=== PATIENT | female | born 1930 | race Caucasian/White ===

== ENCOUNTER 2017-12-18 15:13 | Observation (INO) | payer OTHER, BC ==
[2017-12-18 15:36] LABS: PLATELET COUNT 227 10^3/uL (150-400)
[2017-12-18] MEDS ORDERED: ONDANSETRON 4 MG/2 ML VIAL IVP ONE (15:38)
[2017-12-18] MEDS ORDERED: NS 1,000 ML IV ONE (15:38)
--- NOTE | 2017-12-18 15:38 | EDPHY ---
H & P Stated Complaint: NAUSEA AND AMS Time Seen by Provider: 12/18/17 15:26 HPI/ROS: CHIEF COMPLAINT: Nausea and vomiting HISTORY OF PRESENT ILLNESS: This is an anticoagulated 87 y/o female with a history of atrial fibrillation arriving via EMS complaining of nausea and vomiting onset acutely 45 minutes ago. She tells me she suddenly started vomiting today despite feeling otherwise normal. No associated abdominal pain, fever, diarrhea, headache, cough, chest pain, dyspnea, recent illness, recent trauma. Her niece (who has medical POA) says she felt weak and she couldn't walk. The patient says she just doesn't think she could stand right now. She ate breakfast normally this morning. No recent changes in medications or other daily activities. History limited by patient's hearing loss. REVIEW OF SYSTEMS: Constitutional: No fever, no chills Eyes: No visual changes ENT: No sore throat Respiratory: No cough, no shortness of breath Cardiac: No chest pain Gastrointestinal: see HPI Genitourinary: No hematuria, no dysuria Musculoskeletal: No leg pain or swelling Skin: No rash Neurological: No headache Psychiatric: No depression - Personal History Current Tetanus/Diphtheria Vaccine: Yes Current Tetanus Diphtheria and Acellular Pertussis (TDAP): Yes - Medical/Surgical History PMH: PMH includes: 1. Atrial fibrillation - Eliquis, digoxin 2. Breast cancer 3. Hearing loss Hx Asthma: No Hx Chronic Respiratory Disease: No Hx Diabetes: No Hx Cardiac Disease: Yes Hx Renal Disease: No Hx Cirrhosis: No Hx Alcoholism: No Hx HIV/AIDS: No Hx Splenectomy or Spleen Trauma: No Other PMH: AFIB, - Social History Smoking Status: Never smoked Additional Social History: Normally walks with walker. Lives at home with her niece, who is her POA. Niece at bedside. - Physical Exam Exam: Vitals: HR 188/119, HR 100 General Appearance: Alert, appears pale Eyes: Pupils equal and round, no conjunctival pallor or injection ENT, Mouth: Mucous membranes moist Neck: Normal inspection Respiratory: Lungs are clear to auscultation Cardiovascular: Regular rate and rhythm Gastrointestinal: Abdomen is soft and non-tender Neurological: A&O, nonfocal, hard of hearing, gait deferred Skin: Warm and dry Extremities: Nontender, no pedal edema Psychiatric: Mood and affect normal Constitutional: Initial Vital Signs Temperature (C) 36.9 C 12/18/17 15:17 Heart Rate 98 12/18/17 15:17 Respiratory Rate 94 H 12/18/17 15:17 Blood Pressure 159/96 H 12/18/17 15:17 O2 Sat (%) 94 12/18/17 15:17 O2 Delivery Mode Room Air Allergies/Adverse Reactions: No Known Allergies Allergy (Verified 12/18/17 17:50) Home Medications: Medication Instructions Recorded Alendronate Sodium [Fosamax 70 MG 71 mg PO MO 12/18/17 (*)] Apixaban [Eliquis] 2.5 mg PO BID 12/18/17 Atorvastatin Calcium [Lipitor 20 20 mg PO HS 12/18/17 mg (*)] Cholecalciferol Vit D3 [Vitamin D3 1,000 units PO DAILY 12/18/17 (*)] Cyanocobalamin [Vitamin B12 (*)] 1,000 mcg PO DAILY 12/18/17 Digoxin [Lanoxin 125 mcg (RX)] 125 mcg PO DAILY10 12/18/17 Diltiazem Sr [Cardizem Sr] 90 mg PO DAILY 12/18/17 LORazepam [Ativan (*)] 0.5 mg PO HS 12/18/17 Levothyroxine [Synthroid 75 mcg 75 mcg PO DAILY06 12/18/17 (*)] QUEtiapine FUMARATE [Seroquel 50 75 mg PO HS 12/18/17 mg (*)] Tamoxifen Citrate [Nolvadex 10 MG 20 mg PO DAILY 12/18/17 (*)] Medical Decision Making ED Course/Re-evaluation: This is a [id number] 87 y/o female with a history of atrial fibrillation who presents with acute onset nausea and vomiting with associated generalized weakness 45 minutes prior to arrival. Patient appears pale, but otherwise has a largely unremarkable exam. Plan for IV, labs, UA, EKG, and symptom management. 1L IV NS and 4mg IV Zofran ordered. The 12 lead EKG was interpreted by myself. Atrial fibrillation rate 99, abnormal R wave progression, diffuse T wave changes. See hard copy and/or "tracemaster" electronic copy for interpretation. IV NS 1 liter and Zofran IV given, still nauseated, but fels better, has not vomited. Still feels too weak to stand up. Given advanced age, vomiting and weakness, will admit for obseration. Abd exam remains benign. I do not suspect SBO, sharona, pancreatitis, or other serious etology of sx. Consulted with hospitalist service. Dr. Russell accepts admission for N/V and generalized weakness. Differential Diagnosis: includes though not limited to SBO, bowel perforation, cholecystitis, pancreatitis, appy - Data Points Laboratory Results: Laboratory Results 12/18/17 15:20 12/18/17 15:20 Medications Given: Discontinued Medications Apixaban (Eliquis) 2.5 mg PO BID [facility] Stop: 06/16/18 20:59 Last Admin: 12/19/17 07:53 Dose: 2.5 mg Atorvastatin Calcium (Lipitor) 20 mg PO HS [facility] Stop: 06/16/18 20:59 Last Admin: 12/18/17 23:08 Dose: 20 mg Cholecalciferol (Vitamin D) 1,000 units PO DAILY [facility] Stop: 06/17/18 08:59 Last Admin: 12/19/17 07:52 Dose: 1,000 units Digoxin (Lanoxin) 125 mcg PO DAILY10 [facility] Stop: 06/17/18 09:59 Last Admin: 12/19/17 08:59 Dose: 125 mcg Diltiazem HCl (Cardizem Sr) 90 mg PO DAILY [facility] Stop: 06/17/18 08:59 Last Admin: 12/19/17 07:53 Dose: 90 mg Sodium Chloride (Ns) 1,000 mls @ 0 mls/hr IV EDNOW ONE; Wide Open PRN Reason: Protocol Stop: 12/18/17 15:39 Last Admin: 12/18/17 15:56 Dose: 1,000 mls Sodium Chloride (Ns) 1,000 mls @ 100 mls/hr IV CONT [facility] Stop: 06/16/18 17:44 Last Admin: 12/19/17 07:52 Dose: 1,000 mls Levothyroxine Sodium (Synthroid) 75 mcg PO DAILY06 [facility] Stop: 06/17/18 05:59 Last Admin: 12/19/17 07:53 Dose: 75 mcg Lorazepam (Ativan) 0.5 mg PO HS [facility] Stop: 06/16/18 20:59 Last Admin: 12/18/17 23:08 Dose: 0.5 mg Ondansetron HCl (Zofran) 4 mg IVP EDNOW ONE Stop: 12/18/17 15:39 Last Admin: 12/18/17 15:56 Dose: 4 mg Ondansetron HCl (Zofran) 4 mg IVP Q4HRS PRN PRN Reason: Nausea/Vomiting, Can't Take PO Stop: 06/16/18 17:38 Last Admin: 12/19/17 08:58 Dose: 4 mg Ondansetron HCl (Zofran Odt) 4 mg PO Q4HRS PRN PRN Reason: Nausea/Vomiting, Use 1st Stop: 06/16/18 17:38 Last Admin: 12/18/17 21:09 Dose: 4 mg Quetiapine Fumarate (Seroquel) 75 mg PO HS [facility] Stop: 06/16/18 20:59 Last Admin: 12/18/17 23:08 Dose: 75 mg Tamoxifen Citrate (Nolvadex) 20 mg PO DAILY [facility] Stop: 06/17/18 08:59 Last Admin: 12/19/17 07:53 Dose: 20 mg Vitamin B Complex (Vitamin B12) 1,000 mcg PO DAILY [facility] Stop: 06/17/18 08:59 Last Admin: 12/19/17 07:52 Dose: 1,000 mcg Departure - Departure Disposition: [facility] Inpatient Acute Clinical Impression: Generalized weakness Nausea and vomiting Qualifiers: Vomiting type: unspecified Vomiting Intractability: non-intractable Qualified Code(s): R11.2 - Nausea with vomiting, unspecified Condition: Fair Report Scribed for: Haley Funes Report Scribed by: Galina Gandara Date of Report: 12/18/17 Time of Report: 15:28 Physician Review and Approval Statement: 12/18/17 15:28 Portions of this note were transcribed by a medical delivery technician. I personally performed a history, physical exam, medical decision making, and confirmed accuracy of information the transcribed note.
--- NOTE | 2017-12-18 16:03 | CPEKG ---
Heart Rate: 99 RR Interval: 606 QRSD Interval: 84 QT Interval: 344 QTC Interval: 442 QRS Ridgeway: 16 T Wave Ridgeway: 230 EKG Severity - ABNORMAL ECG - EKG Impression: ATRIAL FIBRILLATION, V-RATE 78-143 EKG Impression: ABNRM R PROG, CONSIDER ASMI OR LEAD PLACEMENT EKG Impression: NONSPECIFIC T ABNORMALITIES, DIFFUSE LEADS Electronically Signed By: Haley Funes 18-Dec-2017 20:48:18
[2017-12-18] MEDS ORDERED: ONDANSETRON DISINTEGRATING 4 MG TAB PO PRN (17:39)
[2017-12-18] MEDS ORDERED: ACETAMINOPHEN 325 MG TAB PO PRN (17:39)
[2017-12-18] MEDS ORDERED: NS 1,000 ML IV SCH (17:45)
--- NOTE | 2017-12-18 18:45 | GHP ---
[f rep st] HISTORY AND PHYSICAL DATE OF ADMISSION: 12/18/2017 CHIEF COMPLAINT: Vomiting. HISTORY OF PRESENT ILLNESS: An 87-year-old female with history of atrial fibrillation, on anticoagul ation, who presents with sudden onset of vomiting this morning after breakfast. The patient reports being in her normal state of health, good appetite, good balance without any pain in her head or ches t, shortness of breath, dysuria, or urinary frequency. The patient took her normal breakfast which i ncludes eggs, marrero, and toast without any associated nausea or difficulty with her stools. Then aft er breakfast, the patient developed very unexpected nausea and vomiting. She vomited 3 times in succ ession at home and was brought to the emergency department by her niece who lives with her and is her care provider. In the emergency department, she denies any pain of her abdomen, chest, head. Denie s dysuria. Denies hematuria. Denies any unusual stools or diarrhea. Denies any known sick contacts . Denies any gait instability, dizziness, vision changes. The patient does report dropping a pot on her head from a height above her head when she was reaching up in the kitchen. This occurred 48 ana rosa rs ago, left a bruise on her forehead, and remains tender per her report when touched, but otherwise nil. The patient denies any palpitations. Denies any shortness of breath. Denies any known sick co ntacts. Denies any new medications or medication changes. Denies any subjective fevers or chills. PAST MEDICAL HISTORY: 1. Atrial fibrillation. 2. Baseline cognitive deficits. 3. Hyperlipidemia. 4. Hypothyroidism. 5. History of breast cancer. SOCIAL HISTORY: Negative for tobacco, occasional half glass of wine with dinner. No illicit drugs o r marijuana. FAMILY HISTORY: Negative for dementia. ADVANCED DIRECTIVES: The patient wishes to be do not resuscitate. Her niece would be her medical de cision maker. REVIEW OF SYSTEMS: A 10-point review of systems is negative with the exception of that reported in t he HPI. PHYSICAL EXAMINATION: VITAL SIGNS: Blood pressure 159/96, heart rate 98, respiratory rate 20, satur ating 94% on room air, 36.9. GENERAL: This is a very robust-appearing elderly female lying flat in bed. HEENT: Notable for dry mucous membranes. Eye exam is negative for any icterus. CARDIAC: The patient is irregularly irregular. PULMONARY: Clear to auscultation bilaterally. GASTROINTESTINAL: Positive bowel sounds. Abdomen is soft and nontender in all 4 quadrants including suprapubic. MUS CULOSKELETAL: Negative for any lower extremity edema. SKIN: Negative for any rashes. NEUROLOGIC: The patient has poor memory. Otherwise, 5/5 strength of bilateral upper and lower extremities. General Education Instructor nial nerves 2-12 are grossly intact. LABORATORY DATA: White count 7.1, hematocrit 41.6, platelets of 224. Sodium 140, creatinine 0.9, bl ood glucose 110. Digoxin 0.7. EKG, which I personally reviewed and interpreted, shows atrial fibrillation, normal axis, normal inte rvals with no acute ST-T changes. ASSESSMENT AND PLAN: This is an 87-year-old female presenting with nausea and vomiting. 1. Acute nausea and vomiting. Based on history, there is no clear provocating event and lower suspi cion for medication-related side effect as she has no new medications or dose changes. Possible rela bryant to a viral gastroenteritis. However, the patient has not developed diarrhea. Will rule out a ce ntral cause with a noncontrast CT of the head as the patient does have a painful lump on her forehead and is on anticoagulants at home, and apparently, the pot that she dropped on her head was quite hea vy. Will check a urinalysis to rule out occult urinary tract infection. Admit the patient for IV fl uid resuscitation, IV antiemetics and observation. 2. Atrial fibrillation. The patient's rates are ranging between 90s to 100s. We will fluid resusci hilario and continue her home rate control medications. I am holding her Eliquis until we have a negati ve head CT. 3. Hypothyroidism. We will send a TSH. 4. Baseline cognitive deficits. The niece, who is her care provider, describes a decline in the rec ent months in her memory. She is followed by an outpatient primary care who will continue to provide support and care in the outpatient setting. We will continue her home medications overnight. 5. Prophylaxis. She is on Eliquis which I will continue with a negative CT. DIET: Regular. DISPOSITION: I expect in less than 2 midnights if the patient's nausea responds well to antiemetics and we find no concerning causes requiring ongoing treatment in the hospital. I have discussed the c ase with the emergency room physician. The patient will be triaged to medical-surgical floor for car e. /[id number]/MODL
[2017-12-18] MEDS: ONDANSETRON 4 MG/2 ML VIAL IVP PRN (21:04)
[2017-12-18] MEDS: QUEtiapine FUMARATE 50 MG TAB PO SCH ×2 (21:09→23:08)
[2017-12-18] MEDS: LORazepam 0.5 MG TAB PO SCH ×2 (21:09→23:08)
[2017-12-18] MEDS: ATORVASTATIN CALCIUM 20 MG TAB PO SCH ×2 (21:09→23:08)
[2017-12-18] MEDS: APIXABAN 2.5 MG TAB PO SCH ×2 (21:09→23:09)
[2017-12-19] MEDS ORDERED: LEVOTHYROXINE 75 MCG TAB PO SCH (06:00)
[2017-12-19] MEDS: APIXABAN 2.5 MG TAB PO SCH (07:53)
[2017-12-19] MEDS: ONDANSETRON 4 MG/2 ML VIAL IVP PRN (08:58)
[2017-12-19] MEDS ORDERED: DILTIAZEM SR 90 MG CAP PO SCH (09:00)
[2017-12-19] MEDS ORDERED: CYANO/VITAMIN B12 1000 MCG TAB PO SCH (09:00)
[2017-12-19] MEDS ORDERED: TAMOXIFEN CITRATE 10 MG TAB PO SCH (09:00)
[2017-12-19] MEDS ORDERED: CHOLECALCIFEROL VIT D3 1,000 UNITS TAB PO SCH (09:00)
[2017-12-19] MEDS ORDERED: DIGOXIN 125 MCG TAB PO SCH (10:00)
--- NOTE | 2017-12-19 12:18 | ASMTCMCOM ---
CM Note CM Note Notes: Met w/pt and niece, Isabel. Pt lives with niece who is her primary caregiver. She also has a private pay DESPATCH CLERK that comes 5 days a week. OT worked with pt and recommends homecare/ PT still pending. DC Plan: TBD Date Signed: 12/19/2017 12:17 PM Electronically Signed By:Deedee Cardenas RN
--- NOTE | 2017-12-19 13:51 | HOSPPROG ---
Hospitalist Progress Note Assessment/Plan: 87 yo F w single episode of vomiting home today see dc summary Subjective: ate magaña soup. not nauseated, hasnt vomitied since arrival Objective: Vital Signs Temp Pulse Resp BP Pulse Ox 36.7 C 112 H 18 147/96 H 92 12/19/17 12:00 12/19/17 12:00 12/19/17 12:00 12/19/17 12:00 12/19/17 12:00 12/18/17 12/19/17 12/20/17 05:59 05:59 05:59 Intake Total 1175 Output Total 1 Balance 1174 - Physical Exam Constitutional: no apparent distress, appears nourished Eyes: PERRL, anicteric sclera Ears, Nose, Mouth, Throat: moist mucous membranes, hearing normal Cardiovascular: regular rate and rhythym, no murmur, rub, or gallop Respiratory: no respiratory distress, no rales or rhonchi Gastrointestinal: normoactive bowel sounds, soft, non-tender abdomen, No guarding, No rebound Genitourinary: no bladder fullness Skin: warm, normal color Musculoskeletal: full muscle strength Neurologic: AAOx3 ICD10 Worksheet Patient Problems: Problems Problem Status Onset Generalized weakness Acute Nausea and vomiting Acute
--- NOTE | 2017-12-19 14:38 | GDS ---
[f rep st] DISCHARGE SUMMARY DISCHARGE DIAGNOSIS: 1. Vomiting. 2. Atrial fibrillation. 3. Diabetes. 4. Dementia. Please see admission history and physical by Dr. Jeanette Russell. The patient presented with an episo de of vomiting x3 without diarrhea or abdominal pain. There was no blood. She had a normal noncontr ast head CT, unremarkable exam, normal lab and tolerated food on the day of discharge. She is theref ore discharged home. /[id number]/MODL
[2017-12-19 15:31] VITALS: BP 142/103; PULSE 110; RESP 16; TEMP 98.8; O2SAT 91
--- NOTE | 2017-12-19 15:36 | PDIAF ---
- Diagnosis Diagnosis: vomiting Code Status: Do Not Resuscitate - Medication Management Discharge Medications: Medications to Continue on Transfer Alendronate Sodium [Fosamax 70 MG (*)] 71 mg PO MO 12/18/17 [Last Taken 12/15/17 ] Apixaban [Eliquis] 2.5 mg PO BID 12/18/17 [Last Taken 12/18/17] Atorvastatin Calcium [Lipitor 20 mg (*)] 20 mg PO HS 12/18/17 [Last Taken ] Cholecalciferol Vit D3 [Vitamin D3 (*)] 1,000 units PO DAILY 12/18/17 [Last Taken 12/18/17] Cyanocobalamin [Vitamin B12 (*)] 1,000 mcg PO DAILY 12/18/17 [Last Taken ] Digoxin [Lanoxin 125 mcg (RX)] 125 mcg PO DAILY10 12/18/17 [Last Taken 12/18/17] Diltiazem Sr [Cardizem Sr] 90 mg PO DAILY 12/18/17 [Last Taken 12/18/17] LORazepam [Ativan (*)] 0.5 mg PO HS 12/18/17 [Last Taken 12/17/17] Levothyroxine [Synthroid 75 mcg (*)] 75 mcg PO DAILY06 12/18/17 [Last Taken 05/30] QUEtiapine FUMARATE [Seroquel 50 mg (*)] 75 mg PO HS 12/18/17 [Last Taken ] Tamoxifen Citrate [Nolvadex 10 MG (*)] 20 mg PO DAILY 12/18/17 [Last Taken Unknown] Discharge Medications: Refer to the Discharge Home Medication list for PRN reason. - Orders Services needed: Home Care, Physical Therapy, Occupational Therapy Home Care Face to Face: I certify that this patient was under my care and that I had the required azun-ge-[id number] encounter meeting the encounter requirements on the discharge day. My findings support the fact that the patient is homebound as defined in Home Care Face to Face Continued: CMS Chapter 7 Medicare Benefits Manual 30.1.1 , The condition of the patient is such that there exists a normal inability to leave home and consequently, leaving home would require a considerable and taxing effort. - Follow Up Care Current Providers and Referrals: Patient,NotPresent [Unknown] - As per Instructions
--- NOTE | 2017-12-19 17:51 | ASMTCMCOM ---
CM Note CM Note Notes: Received call from Tanisha at [facility], they are able to take pt and will reach out to her nidia Hall for scheduling. DC Plan: [facility]/ [facility] (PT/OT) Date Signed: 12/19/2017 05:50 PM Electronically Signed By:Deedee Cardenas RN
--- NOTE | 2017-12-20 17:15 | ASDISCHSUM ---
Discharge Information Plan Status:Home with Home Health Medically Cleared to Leave: Discharge Date:12/19/2017 06:12 PM CM D/C Disposition:Home Health Service ADT D/C Disposition:[id number] Projected Discharge Date:12/19/2017 11:00 AM Transportation at D/C:Family Discharge Delay Reason: Follow-Up Date:12/19/2017 11:00 AM Discharge Slot: Final Diagnosis: Placement Information Referral Type:*Home Health Care Services Referral ID:[id number] Provider Name:[facility] [place] Address 1:[address] [address] Phone Number: Address 2: Fax Number: City:[place] Selection Factors: State:[place] Patient Contact Information Contact Name:YOLANDA Relationship:Sriram Address:[address] Work Phone: City:[facility] Phone: State/Zip Code:[place] [address] Email: Financial Information Financial Class:Medicare Primary Plan Desc:MEDICARE OUTPATIENT Primary Plan Number:[id number] Secondary Plan Desc:[employer] by [employer] [facility] Secondary Plan Number:[id number] Assessment Information [facility] CM Progress Note CM Note CM Note Notes: Met w/pt and sriram Isabel. Pt lives with niece who is her primary caregiver. She also has a private pay ENERGY SALES BROKER that comes 5 days a week. OT worked with pt and recommends homecare/ PT still pending. DC Plan: TBD Date Signed: 12/19/2017 12:17 PM Electronically Signed By:Deedee Cardenas RN [facility] CM Progress Note CM Note CM Note Notes: Received call from Tanisha at [facility], they are able to take pt and will reach out to her nidia Hall for scheduling. DC Plan: Homecare/ [facility] (PT/OT) Date Signed: 12/19/2017 05:50 PM Electronically Signed By:Deedee Cardenas RN Case Management Discharge Plan Note Case Management Discharge Discharge Order Complete? Answers: Yes Patient to Obtain Answers: Independently Medications Transportation Arranged Answers: Family/Friends Faxed Final Orders Answers: Yes Family Notified Answers: Yes Discharge Comments Notes: Emelina PATEL, final orders faxed. Tanisha Duong notified. Date Signed: 12/19/2017 05:52 PM Electronically Signed By:Deedee Cardenas RN Intervention Information
== END 2017-12-19 18:12 | disposition home health service (06) ==
LOC: F3E 17:40
PROVIDERS: ADMIT Hospitalist; ATTEND Internal Medicine
DX: R11.2 Nausea with vomiting, unspecified (principal); R53.1 Weakness; I48.91 Unspecified atrial fibrillation; F03.90 Unspecified dementia, unspecified severity, without behavioral disturbance, psychotic disturbance, mood disturbance, and anxiety; I25.10 Atherosclerotic heart disease of native coronary artery without angina pectoris; E03.9 Hypothyroidism, unspecified; H91.90 Unspecified hearing loss, unspecified ear; Z79.01 Long term (current) use of anticoagulants; Z85.3 Personal history of malignant neoplasm of breast; Z66 Do not resuscitate
CPT/HCPCS: 70450; 93005; 96374; 97161; 97166; 99285; G0378; G8978; G8979; J2405; G8987-GO-CI; G8988-GO-CI; G8989-GO-CI

== ENCOUNTER 2018-01-15 18:14 | Inpatient (IN) | payer OTHER, BC ==
--- NOTE | 2018-01-15 18:32 | EDPHY ---
H & P Time Seen by Provider: 01/15/18 18:21 HPI/ROS: CHIEF COMPLAINT: Nausea vomiting HISTORY OF PRESENT ILLNESS: The patient is an 87-year-old female with a history of atrial fibrillation who presents to the emergency department with nausea and vomiting. The patient states she was doing well this morning until just prior to arrival when she became nauseated. She had 3 episodes of nonbloody emesis. No fevers or chills. No abdominal pain. No chest pain or shortness of breath. Patient was seen in the emergency department on 12/18/2017 with similar symptoms. REVIEW OF SYSTEMS: My complete review of systems is negative except as mentioned in the HPI. Past Medical/Surgical History: Includes atrial fibrillation, baseline cognitive deficits, hyperlipidemia, hypothyroidism, breast cancer Social history: The patient denies tobacco or drugs. She occasionally drinks alcohol. Smoking Status: Never smoked Physical Exam: Vitals noted. Hypertensive at 181/117. GENERAL: No acute distress, alert. HEENT: Eyes normal to inspection, normal pharynx, no signs of dehydration. NECK: No thyromegaly, no lymphadenopathy, supple. RESPIRATORY: Clear to auscultation bilaterally, no rales, rhonchi or wheezing. CVS: Regular rate and rhythm, no rubs, murmurs, or gallops. ABDOMEN: Soft, nontender, nondistended, no organomegaly. Benign BACK: Normal to inspection, no CVA tenderness. SKIN: Normal color, no rash, warm, dry. No pallor. EXTREMITIES: No pedal edema, no calf tenderness, no Homans sign or cords, no joint swelling. NEURO/PSYCH: Alert and oriented x2, normal mood and affect, normal motor sensory exam. No obvious cranial nerve deficit. Constitutional: Initial Vital Signs Temperature (C) 36.8 C 01/15/18 18:20 Heart Rate 62 01/15/18 18:20 Respiratory Rate 20 01/15/18 18:20 Blood Pressure 181/117 H 01/15/18 18:20 O2 Sat (%) 91 L 01/15/18 18:20 O2 Delivery Mode Nasal Cannula O2 (L/minute) 2 Allergies/Adverse Reactions: No Known Allergies Allergy (Verified 01/15/18 18:26) Home Medications: Medication Instructions Recorded Alendronate Sodium [Fosamax 70 MG 71 mg PO MO 12/18/17 (*)] Apixaban [Eliquis] 2.5 mg PO BID 12/18/17 Atorvastatin Calcium [Lipitor 20 20 mg PO HS 12/18/17 mg (*)] Cholecalciferol Vit D3 [Vitamin D3 1,000 units PO DAILY 12/18/17 (*)] Cyanocobalamin [Vitamin B12 (*)] 1,000 mcg PO DAILY 12/18/17 Digoxin [Lanoxin 125 mcg (RX)] 125 mcg PO DAILY10 12/18/17 Diltiazem Sr [Cardizem Sr] 90 mg PO DAILY 12/18/17 LORazepam [Ativan (*)] 0.5 mg PO HS 12/18/17 Levothyroxine [Synthroid 75 mcg 75 mcg PO DAILY06 12/18/17 (*)] QUEtiapine FUMARATE [Seroquel 50 75 mg PO HS 12/18/17 mg (*)] Tamoxifen Citrate [Nolvadex 10 MG 20 mg PO DAILY 12/18/17 (*)] Medical Decision Making - Diagnostics Imaging Results: Imaging Impressions Chest X-Ray 01/15/18 19:33 Impression: Early asymmetric congestive heart failure versus bilateral upper lobe pneumonitis. Findings and recommendations discussed with Emergency Department physician, Ayala Montoya M.D., at 2009 hours, on January 15, 2018. Final report concurs with initial preliminary interpretation. ED Course/Re-evaluation: I met EMS on arrival. I took report from the assistant teacher primary. He was unable to obtain IV access. The patient was given Zofran 4 mg ODT. Guitar Instructor states that the family reports that she is at her baseline mental status. She is normally alert and orient x2. An IV was placed. Laboratory studies were obtained. Patient was given normal saline 500 mL IV for hydration. I reviewed the patient's medical record from 12/18/2017. At that time she was admitted with nausea and vomiting of unknown origin. Atrial fibrillation at 90, normal rate, normal axis, normal intervals. There are no ST or T-wave abnormalities. Chest x-ray: I discussed this with Dr. Swift. Please refer the dictated report. This is CHF versus atypical pneumonia. The patient's CBC was mildly elevated. Her chemistry panel was unremarkable. BNP was elevated at 2400. Troponin was negative. Differential Diagnosis: My differential includes but is not limited to gastroenteritis, small-bowel obstruction, perforation, electrolyte abnormality, sugar abnormality, dehydration - Data Points Laboratory Results: Laboratory Results 01/15/18 20:30 01/15/18 20:30 01/15/18 01/15/18 01/15/18 20:40 20:30 20:30 WBC 10.95 10^3/uL H 10^3/uL (3.80-9.50) RBC 4.45 10^6/uL 10^6/uL (4.18-5.33) Hgb 14.4 g/dL g/dL (12.6-16.3) Hct 42.5 % % (38.0-47.0) MCV 95.5 fL fL (81.5-99.8) MCH 32.4 pg pg (27.9-34.1) MCHC 33.9 g/dL g/dL (32.4-36.7) RDW 14.2 % % (11.5-15.2) Plt Count 245 10^3/uL 10^3/uL (150-400) MPV 10.4 fL fL (8.7-11.7) Neut % (Auto) 90.5 % H % (39.3-74.2) Lymph % (Auto) 5.0 % L % (15.0-45.0) [place] % (Auto) 3.5 % L % (4.5-13.0) Eos % (Auto) 0.2 % L % (0.6-7.6) Baso % (Auto) 0.4 % % (0.3-1.7) Nucleat RBC Rel Count 0.0 % % (0.0-0.2) Absolute Neuts (auto) 9.92 10^3/uL H 10^3/uL (1.70-6.50) Absolute Lymphs (auto) 0.55 10^3/uL L 10^3/uL (1.00-3.00) Absolute Monos (auto) 0.38 10^3/uL 10^3/uL (0.30-0.80) Absolute Eos (auto) 0.02 10^3/uL L 10^3/uL (0.03-0.40) Absolute Basos (auto) 0.04 10^3/uL 10^3/uL (0.02-0.10) Absolute Nucleated RBC 0.00 10^3/uL 10^3/uL (0-0.01) Immature Gran % 0.4 % % (0.0-1.1) Immature Gran # 0.04 10^3/uL 10^3/uL (0.00-0.10) Sodium 135 mEq/L mEq/L (135-145) Potassium 4.7 mEq/L mEq/L (3.5-5.2) Chloride 101 mEq/L mEq/L (97-110) Carbon Dioxide 22 mEq/l mEq/l (22-31) Anion Gap 12 mEq/L mEq/L (8-16) BUN 20 mg/dL mg/dL (7-23) Creatinine 0.7 mg/dL mg/dL (0.6-1.0) Estimated GFR > 60 Glucose 131 mg/dL H mg/dL (70-100) Calcium 8.9 mg/dL mg/dL (8.5-10.4) Total Bilirubin 0.8 mg/dL mg/dL (0.1-1.4) Conjugated Bilirubin 0.4 mg/dL mg/dL (0.0-0.5) Unconjugated Bilirubin 0.4 mg/dL mg/dL (0.0-1.1) AST 18 IU/L IU/L (14-46) ALT 33 IU/L IU/L (9-52) Alkaline Phosphatase 63 IU/L IU/L (38-126) Troponin I < 0.012 ng/mL ng/mL (0.000-0.034) NT-Pro-B Natriuret Pep 2490 pg/mL H pg/mL (0-450) Total Protein 6.6 g/dL g/dL (6.3-8.2) Albumin 4.0 g/dL g/dL (3.5-5.0) Lipase 35 IU/L IU/L (23-300) Urine Color YELLOW Urine Appearance CLEAR Urine pH 6.0 (5.0-7.5) Ur Specific [place] 1.014 (1.002-1.030) Urine Protein 1+ H (NEGATIVE) Urine Ketones NEGATIVE (NEGATIVE) Urine Blood 2+ H (NEGATIVE) Urine Nitrate NEGATIVE (NEGATIVE) Urine Bilirubin NEGATIVE (NEGATIVE) Urine Urobilinogen 2.0 EU H EU (0.2-1.0) Ur Leukocyte Esterase NEGATIVE (NEGATIVE) Urine RBC 50-182 /hpf H /hpf (0-3) Urine WBC 1-3 /hpf /hpf (0-3) Ur Epithelial Cells TRACE /lpf /lpf (NONE-1+) Urine Glucose NEGATIVE (NEGATIVE) Medications Given: Discontinued Medications Sodium Chloride (Ns) 500 mls @ 3,000 mls/hr IV ONCE ONE Stop: 01/15/18 18:55 Last Admin: 01/15/18 19:02 Dose: 500 mls Ondansetron HCl (Zofran) 4 mg IVP EDNOW ONE Stop: 01/15/18 18:47 Last Admin: 01/15/18 19:03 Dose: 4 mg Departure - Departure Disposition: Home, Routine, Self-Care Clinical Impression: Nausea and vomiting Qualifiers: Vomiting type: unspecified Vomiting Intractability: non-intractable Qualified Code(s): R11.2 - Nausea with vomiting, unspecified Condition: Good Referrals: Patient,NotPresent [Unknown] - As per Instructions
[2018-01-15] MEDS ORDERED: NS 500 ML IV ONE (18:46)
[2018-01-15] MEDS ORDERED: ONDANSETRON 4 MG/2 ML VIAL IVP ONE (18:46)
--- NOTE | 2018-01-15 19:43 | CPEKG ---
Heart Rate: 90 RR Interval: 667 QRSD Interval: 80 QT Interval: 340 QTC Interval: 416 QRS Witten: 14 T Wave Witten: 269 EKG Severity - ABNORMAL ECG - EKG Impression: ATRIAL FIBRILLATION Electronically Signed By: Ayala Montoya 15-Jan-2018 23:05:46
[2018-01-15 20:45] LABS: PLATELET COUNT 245 10^3/uL (150-400)
[2018-01-15] MEDS ORDERED: ONDANSETRON 4 MG/2 ML VIAL IVP PRN (22:08)
[2018-01-15] MEDS ORDERED: ACETAMINOPHEN 325 MG TAB PO PRN (22:08)
[2018-01-15] MEDS ORDERED: ONDANSETRON DISINTEGRATING 4 MG TAB PO PRN (22:08)
[2018-01-15] MEDS ORDERED: PROMETHAZINE HCL 25 MG/ML INJ IVP PRN (22:08)
[2018-01-15] MEDS ORDERED: QUEtiapine FUMARATE 50 MG TAB PO ONE (22:33)
[2018-01-15] MEDS ORDERED: QUEtiapine FUMARATE 25 MG TAB PO ONE (22:33)
[2018-01-15] MEDS ORDERED: LORazepam 1 MG TAB PO ONE (22:33)
--- NOTE | 2018-01-15 22:45 | GHP ---
[f rep st] HISTORY AND PHYSICAL DATE OF ADMISSION: 01/15/2018 CHIEF COMPLAINT: Vomiting. HISTORY OF PRESENT ILLNESS: An 87-year-old female, seen with her daughter who provides some of the h istory. Patient was admitted for a very similar presentation about 1 month ago. She had 3 episodes of vomiting. Because of this, she presented to the emergency department. She denies any fevers, cou gh, abdominal pain. She had a large bowel movement today. In the emergency department, she was note d to desaturate to 82% on room air. She has a history of atrial fibrillation. She has never been to ld she has CHF. She has never had any problems with lower extremity edema, never been told she had f luid on her lungs. PAST MEDICAL/SURGICAL HISTORY: 1. Atrial fibrillation. 2. Cognitive deficits at baseline. 3. Atrial fibrillation. 4. Hyperlipidemia. 5. Hypothyroid. 6. History of breast cancer. MEDICATIONS: Please see medication reconciliation. ALLERGIES: No known drug allergies. SOCIAL HISTORY: She lives with her daughter. 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 No significant al cohol intake. FAMILY HISTORY: Reviewed and noncontributory. REVIEW OF SYSTEMS: A 10-point review of systems is conducted and is negative except per HPI. PHYSICAL EXAM: VITAL SIGNS: Blood pressure 161/100, heart rate 90, respiratory rate 18, saturating 97% on 2 L, temperature 36.8. GENERAL: Pleasant female who is resting comfortably, no acute distres s. HEENT: Normocephalic, atraumatic. CARDIOVASCULAR: Regular rate and rhythm. No murmurs, rubs, or gallops. PULMONARY: Lungs clear to auscultation bilaterally. There are no wheezes, rales, or br onchial breath sounds. ABDOMEN: Soft, nontender, nondistended. She has normal bowel sounds. SKIN: No rash. : No Ramirez. NEUROLOGIC: Alert and oriented x3, although she does have difficulty rem embering some recent events. She has a nonfocal neurologic exam. PSYCHIATRIC: Normal mood and affe ct. LABS: Her white count is 10.9. Basic metabolic panel is normal. BNP is 2490. She has 50-182 reds in her urine. Digoxin level 0.7. DATA: 1. I discussed this with Dr. Montoya. 2. I personally viewed and interpreted her EKG. This shows atrial fibrillation. There are mild T-w ave abnormalities in leads V4 through V6. 3. Chest x-ray shows mild cephalization of her pulmonary vasculature versus an interstitial pattern. IMPRESSION AND PLAN: 1. Nausea, vomiting: Given her benign abdominal exam, only 2 episodes of this, I do not think that we need to look much further at this point. I am not sure if she or her daughter would really favor any intervention either. She has received some hydration in the ED, I think that is appropriate. Wi ll treat symptomatically for now. No evidence of bowel obstruction or gastric outlet obstruction at this point. Follow her clinical course. 2. Hypoxia/abnormal chest x-ray: I think this is most consistent with pneumonitis. Other considera tion would be aspiration pneumonia versus congestive heart failure. She does not appear volume overl oaded on her exam. I do not hear any pneumonia on my pulmonary auscultation either. Procalcitonin i s pending. I will hold on antibiotics for now. Will watch her volume status. Repeat a chest x-ray in the morning. If this is an aspiration pneumonitis, it should resolve on its own. 3. Atrial fibrillation: Her heart rates are now around 90-100. Will restart her rate control medic ations when they are reconciled. She is on Eliquis for cerebrovascular accident prophylaxis. 4. Cognitive deficits: I do not see any reports of significant delirium on her last hospitalization . She certainly is at risk for this. I do see that she had a roll belt overnight, however. 5. Venous thromboembolism risk is moderate. If she has a prolonged hospital stay, which I am doubti ng, she should get pharmacologic prophylaxis. 6. Code status is do not resuscitate. /[id number]/MODL
[2018-01-15] MEDS ORDERED: APIXABAN 5 MG TAB PO SCH (23:00)
[2018-01-16 03:59] LABS: PLATELET COUNT 211 10^3/uL (150-400)
[2018-01-16] MEDS: LEVOTHYROXINE 75 MCG TAB PO SCH (05:51)
[2018-01-16] MEDS: APIXABAN 2.5 MG TAB PO SCH ×2 (10:21→21:06)
[2018-01-16] MEDS: DIGOXIN 125 MCG TAB PO SCH (10:21)
[2018-01-16] MEDS: DILTIAZEM SR 90 MG CAP PO SCH (10:22)
[2018-01-16] MEDS ORDERED: FUROSEMIDE 20 MG TAB PO ONE (10:55)
[2018-01-16] MEDS: TAMOXIFEN CITRATE 10 MG TAB PO SCH (12:34)
[2018-01-16] MEDS ORDERED: ENOXAPARIN 40 MG/0.4 ML SYR SC SCH (15:45)
--- NOTE | 2018-01-16 15:49 | HOSPPROG ---
Hospitalist Progress Note Assessment/Plan: 78 yo female admitted with n/v and SOB. N/V appears to have resolved. She is hypoxic requiring 1-2 L O2. CXR shows possible interstitial pneumonia. She denies cough or SOB. She has trace pedal edema #Hypoxemia #Interstitial Edema, Possible CHF #Pedal Edema #N/V, resolved #reported diarrhea, none here #Generalized Weakness: PT/OT Plan: -I have given a trial of Lasix x 1 but she has not had much improvement. Will monitor overnight and repeat CXR in a.m.. check TTE. May need additional diuretic tomorrow. Her pulm exam was CTA. No signs of wheezing or labored breathing -Antiemetics PRN. -PT/OT -Start Lovenox -Change status to inpatient Subjective: no cp or sob. no n/v. reports she feels fine. she is still requiring supplemental O2 Objective: Vital Signs Temp Pulse Resp BP Pulse Ox 37.1 C 97 14 134/72 H 82 L 01/16/18 11:08 01/16/18 11:08 01/16/18 11:08 01/16/18 11:08 01/16/18 15:30 Laboratory Results 01/16/18 03:29 01/15/18 01/16/18 01/17/18 05:59 05:59 05:59 Intake Total 500 Balance 500 - Physical Exam Constitutional: no apparent distress Eyes: PERRL, EOMI Ears, Nose, Mouth, Throat: moist mucous membranes, No hearing normal Cardiovascular: regular rate and rhythym, edema (trace LE edema) Respiratory: no respiratory distress, clear to auscultation, reduced air movement (mildy reduced), No expiratory wheeze Gastrointestinal: normoactive bowel sounds, soft, non-tender abdomen Skin: warm Musculoskeletal: generalized weakness Neurologic: No AAOx3 Psychiatric: interacting appropriately, not anxious Lymph, Heme, Immunologic: No petechiae ICD10 Worksheet Patient Problems: Problems Problem Status Onset Nausea and vomiting Acute Generalized weakness Acute
--- NOTE | 2018-01-16 15:51 | ASMTCASEMG ---
Living Arrangements What is your living Answers: With Other Relative(s) arrangement? Who do you live with? Type Of Residence What kind of residence do Answers: House you live in? Discharge Plan Comments Coordination Status Comments Notes: Pts case discussed in tx rounds. Pt is a 87 y/o female admitted for CHF and vomiting. PT is recommending HC w/ 24hr supervision. OT is recommending HC vs SNF. Pt has dementia. Pt is currently living w/ Isabel, niece. CM met w/ pt and Isabel for dispo planning. Isabel reports that pt had [facility] in the past and would like another referral sent to them. Pt has a VOCAL MUSIC TEACHER M-F for 8am-5pm. Isabel reports that pt is never left alone. Isabel is in the process of transitioning pt into a memory care unit in [place]. CM provided Isabel emotional support. CM to follow. Plan: Rhoda; PT, OT, RN, Date Signed: 01/16/2018 03:51 PM Electronically Signed By:CAROLINA Smith
[2018-01-16] MEDS ORDERED: ALBUTEROL 3 ML DEYVIAL IH SCH (16:00)
[2018-01-16] MEDS ORDERED: ALBUTEROL 3 ML DEYVIAL IH PRN (16:46)
--- NOTE | 2018-01-16 17:37 | PDMN ---
Medical Necessity Medical necessity: change to IP; los>2mn for hypoxia w/O2 need 1-2 L, possible interstitial pneumonia, possible CHF w/little improvement with trial Lasix; requires continued monitoring, possible diuretic, repeat CXR, TTE, PT/OT; comorbid afib, hld, advanced age; per order and progress note 01/16/18
[2018-01-16] MEDS ORDERED: PNEUMOC 13-VAL CONJ-DIP CRM/PF 0.5 ML SYR IM ONE (18:15)
[2018-01-16] MEDS: ATORVASTATIN CALCIUM 20 MG TAB PO SCH (21:06)
[2018-01-16] MEDS: LORazepam 0.5 MG TAB PO SCH (21:06)
[2018-01-16] MEDS: QUEtiapine FUMARATE 50 MG TAB PO SCH (21:06)
[2018-01-17 04:29] LABS: PLATELET COUNT 215 10^3/uL (150-400)
[2018-01-17] MEDS: LEVOTHYROXINE 75 MCG TAB PO SCH (05:32)
[2018-01-17] MEDS: APIXABAN 2.5 MG TAB PO SCH ×2 (09:41→20:50)
[2018-01-17] MEDS: DIGOXIN 125 MCG TAB PO SCH (09:41)
[2018-01-17] MEDS: DILTIAZEM SR 90 MG CAP PO SCH (09:41)
[2018-01-17] MEDS: TAMOXIFEN CITRATE 10 MG TAB PO SCH (09:42)
--- NOTE | 2018-01-17 11:48 | HOSPPROG ---
Hospitalist Progress Note Assessment/Plan: 78 yo female admitted with n/v and SOB. N/V appears to have resolved. She is hypoxic requiring 1-2 L O2. Chest x-ray reviewed and shows probable interstitial lung disease. # hypoxic respiratory failure with minimal oxygen requirements currently. Chest x-ray most consistent with interstitial lung disease. I did discuss with the patient's niece regarding possible CT scan to verify this although it would not change our treatment plan. She is in agreement that this does not need to be done at this time * Continue oxygen as needed will likely need home O2 at night * DC Lasix # AFib with rapid ventricular response, unclear if this is new for her and undocumented. * Anticoagulated with Eliquis * Currently rate controlled with diltiazem and digoxin * Continue to on telemetry and follow # hypothyroidism on replacement. Will repeat TSH given her new AFib # recurrent nausea vomiting of unclear etiology. * Check upper GI regarding possible esophageal strictures * Currently eating and drinking normally # dementia, currently living with her niece Isabel * Patient is do not resuscitate * May benefit from palliative care once discharged home # generalized weakness continue physical and occupational therapy # hematuria, unclear etiology possible cath specimen will repeat study # disposition. Likely home with home care, consider palliative care consult once home as well Subjective: Patient new to me and chart reviewed. Review chest x-ray personally and discussed with pulmonology. Patient has no pain and no complaints. Objective: Vital Signs Temp Pulse Resp BP Pulse Ox 36.4 C 103 H 18 120/81 H 81 L 01/17/18 07:51 01/17/18 09:41 01/17/18 07:51 01/17/18 07:51 01/17/18 10:33 Laboratory Results 01/17/18 03:12 01/17/18 03:12 01/16/18 01/17/18 01/18/18 05:59 05:59 05:59 Intake Total 500 600 Balance 500 600 - Physical Exam Constitutional: not in pain, chronically ill appearing Eyes: EOMI Ears, Nose, Mouth, Throat: moist mucous membranes, hard of hearing Cardiovascular: regular rate and rhythym Respiratory: no respiratory distress, inspiratory crackles (bilaterally) Gastrointestinal: soft, non-tender abdomen Skin: warm Neurologic: No AAOx3 Psychiatric: poor insight, poor judgement, poor memory ICD10 Worksheet Patient Problems: Problems Problem Status Onset Nausea and vomiting Acute Generalized weakness Acute
--- NOTE | 2018-01-17 15:05 | ECHO ---
[email or web address] [address] [address] Main: [phone] Fax: Transthoracic Echocardiogram Name: BRENDON GONZALEZ MR#: [id number] Study Date: 01/17/2018 Study Time: 11:23 AM Date of : 1930 Age: 87 year(s) Height: 157.5 cm (62 in.) Weight: 59.42 kg (131 lb.) BSA: 1.6 m2 Gender: Female Examination: Echo Indication: ?CHF Image Quality: Technically Difficult Contrast: Requested by: Braeden Cunningham BP: 120 mmHg/81 mmHg Heart Rate: Rhythm: Indication: ?CHF Procedure Staff Funeral Home Assistant: Lara Rose [facility] Reading Physician: Mario Linda MD Requesting Provider: Conclusions: Mild concentric LV hypertrophy. EF is 56 %. No regional wall motion abnormality. Normal RV function. There is no significant mitral valve regurgitation. No mitral stenosis is present. Mild aortic valve regurgitation is present. Mild tricuspid regurgitation is present. The pulmonary artery pressure is normal. Right ventricular systolic pressure measures 27mmHg. Measurements: Chambers Valvular Assessment AV/MV Valvular Assessment TV/PV Normal Normal Normal Name Value Range Name Value Range Name Value Range Ao Yamilka (MM): 2.8 cm (2.2 cm-3.7 AV Vmax: 2.28 m/s (1 m/s-1.7 TR Vmax: 2.36 mm/s ( - ) cm) m/s) TR PGmax: 22 mmHg ( - ) IVSd (2D): 1.2 cm (0.6 cm-1.1 AV maxP mmHg ( - ) syst. PAP: 27 mmHg ( - ) cm) AV meanP mmHg ( - ) PV Vmax: 1.24 m/s (0.6 m/s-0.9 LVDd (2D): 3.7 cm (3.9 cm-5.3 KATHY (VTI): 1.0 cm ( - ) m/s) cm) AR (PHT): 864 ms ( - ) PV PGmax: 6 mmHg ( - ) LVDs (2D): 2.5 cm (2.1 cm-4 MV E Vmax: 1.37 m/s ( - ) cm) LVPWd (2D): 1.1 cm ( - ) LVOTd 1.9 cm 1.9 cm mm LVEF (MOD4): 56 % (>=55 %) Continued Measurements: Chambers Valvular Assessment AV/MV Valvular Assessment TV/PV Patient: BRENDON GONZALEZ Study Date: 01/17/2018 Page 1 of 2 11:23 AM Name Value Name Value Name Value LADs Lon.8 cm MV E' Septal: 0.08 m/s CVP (est.): 5 mmHg LA Area: 23.7 cm2 MV E/E' Septal: 16.20 MV E/E' Lateral: 19.50 AR Vmax: 3.45 cm/s Additional Vessels Name Value Ao Ascendin.4 cm Findings: Left Ventricle: Normal size left ventricle. Mild concentric LV hypertrophy. Normal global systolic LV function. EF is 56 %. No regional wall motion abnormality. Normal diastolic LV function. Right Ventricle: Normal size right ventricle. Normal RV function. Left Atrium: The left atrium is normal in size. Right Atrium: The right atrium is normal in size. Mitral Valve: The mitral valve is normal in appearance and function. There is mild thickening of the mitral valve leaflets. Moderate mitral annular calcification. There is no significant mitral valve regurgitation. No mitral stenosis is present. Aortic Valve: The aortic valve is normal in appearance and function. Aortic sclerosis is present. Mild aortic valve regurgitation is present. Trivial calcific aortic valve stenosis. Mean aortic valve gradient 14. Tricuspid Valve: The tricuspid valve is normal in appearance and function. Mild tricuspid regurgitation is present. The pulmonary artery pressure is normal. Right ventricular systolic pressure measures 27mmHg. Pulmonic Valve: The pulmonic valve is normal in appearance and function. There is no pulmonic regurgitation seen. Aorta: The aorta is normal. Normal size aortic root measuring 2.8 cm. Normal size ascending aorta measuring 3.4 cm. IVC: The IVC is normal sized. Pericardium: No pericardial effusion. (No Signature Object) Patient: BRNEDON GONZALEZ Study Date: 01/17/2018 Page 2 of 2 11:23 AM [id number]
--- NOTE | 2018-01-17 15:43 | ASMTCMCOM ---
CM Note CM Note Notes: Spoke with MD & RN; Upper GI series ordered. Anticipate dc tomorrow if pt is medically stable. Pt's niece Isabel aware. Alerted Elisa ([phone]) at [facility]; updates faxed. CM will continue to follow. Plan-[facility] for RN/PT/OT/SW Date Signed: 01/17/2018 03:42 PM Electronically Signed By:Kristen Hunt RN
[2018-01-17] MEDS: ATORVASTATIN CALCIUM 20 MG TAB PO SCH (20:50)
[2018-01-17] MEDS: LORazepam 0.5 MG TAB PO SCH (20:52)
[2018-01-17] MEDS: QUEtiapine FUMARATE 50 MG TAB PO SCH (20:52)
[2018-01-18] MEDS: LEVOTHYROXINE 75 MCG TAB PO SCH (07:57)
[2018-01-18] MEDS: DIGOXIN 125 MCG TAB PO SCH (08:46)
[2018-01-18] MEDS: TAMOXIFEN CITRATE 10 MG TAB PO SCH (08:47)
[2018-01-18] MEDS: DILTIAZEM SR 90 MG CAP PO SCH (08:47)
[2018-01-18] MEDS: APIXABAN 2.5 MG TAB PO SCH ×2 (08:51→20:41)
--- NOTE | 2018-01-18 13:59 | HOSPPROG ---
Hospitalist Progress Note Assessment/Plan: 78 yo female admitted with n/v and SOB. N/V appears to have resolved. She is hypoxic requiring 1-2 L O2. Chest x-ray reviewed and shows probable interstitial lung disease. # hypoxic respiratory failure with minimal oxygen requirements currently. Chest x-ray most consistent with interstitial lung disease. I did discuss with the patient's niece regarding possible CT scan to verify this although it would not change our treatment plan. She is in agreement that this does not need to be done at this time * Continue oxygen as needed will likely need home O2 at night * DC Lasix # AFib with rapid ventricular response, unclear if this is new for her and undocumented. * Anticoagulated with Eliquis * Currently rate controlled with diltiazem and digoxin * Continue to on telemetry and follow # hypothyroidism on replacement. Will repeat TSH given her new AFib * tsh slightly low, will increase dose slightly # recurrent nausea vomiting of unclear etiology. * esophagram shows reflux and esophagitis * discussed with faustino and will treat with PPI * if symptoms recur, could pursue EGD. # dementia, currently living with her niece Faustino * Patient is do not resuscitate * May benefit from palliative care once discharged home * Faustino considering care center for aunt in near future. # generalized weakness continue physical and occupational therapy # hematuria, unclear etiology possible cath specimen will repeat study # disposition. Likely home with home care, consider palliative care consult once home as well Subjective: feeling much better. no n/v Objective: Vital Signs Temp Pulse Resp BP Pulse Ox 36.7 C 99 16 141/95 H 97 01/18/18 10:21 01/18/18 10:21 01/18/18 10:21 01/18/18 10:21 01/18/18 10:21 Laboratory Results 01/17/18 03:12 01/18/18 04:32 01/17/18 01/18/18 01/19/18 05:59 05:59 05:59 Intake Total 600 100 Balance 600 100 - Time Spent With Patient Time Spent with Patient: greater than 25 minutes Time Spent with Patient: Greater than 25 minutes spent on this patients care, greater than 50% of time spent counseling, educating, and coordinating care regarding the above mentioned plan. - Physical Exam Constitutional: no apparent distress, chronically ill appearing Eyes: PERRL Ears, Nose, Mouth, Throat: moist mucous membranes Cardiovascular: regular rate and rhythym Respiratory: no respiratory distress Gastrointestinal: normoactive bowel sounds Genitourinary: no bladder fullness Skin: warm Musculoskeletal: generalized weakness Neurologic: No AAOx3 Psychiatric: poor judgement, poor memory ICD10 Worksheet Patient Problems: Problems Problem Status Onset Nausea and vomiting Acute Generalized weakness Acute
[2018-01-18] MEDS: PANTOPRAZOLE SODIUM 40 MG TAB PO SCH ×2 (15:30→20:41)
[2018-01-18] MEDS ORDERED: BISACODYL 10 MG SUPP PR PRN (18:32)
[2018-01-18] MEDS ORDERED: MAGNESIUM HYDROXIDE 30 ML UDCUP PO PRN (18:32)
[2018-01-18] MEDS ORDERED: LACTULOSE 20 GM/30 ML UDCUP PO PRN (18:32)
[2018-01-18] MEDS ORDERED: POLYETHYLENE GLYCOL 3350 17 GM PKT PO PRN (18:32)
[2018-01-18] MEDS: ATORVASTATIN CALCIUM 20 MG TAB PO SCH (20:40)
[2018-01-18] MEDS: QUEtiapine FUMARATE 50 MG TAB PO SCH (20:40)
[2018-01-18] MEDS: LORazepam 0.5 MG TAB PO SCH (20:41)
[2018-01-18] MEDS: SENNOSIDES/DOCUSATE SODIUM TAB PO SCH (20:41)
[2018-01-19] MEDS: LEVOTHYROXINE 75 MCG TAB PO SCH (07:36)
[2018-01-19 07:51] VITALS: BP 150/78
[2018-01-19] MEDS: DILTIAZEM SR 90 MG CAP PO SCH (07:51)
[2018-01-19] MEDS: APIXABAN 2.5 MG TAB PO SCH (07:51)
[2018-01-19] MEDS: PANTOPRAZOLE SODIUM 40 MG TAB PO SCH (07:52)
[2018-01-19] MEDS: SENNOSIDES/DOCUSATE SODIUM TAB PO SCH (07:52)
[2018-01-19] MEDS: TAMOXIFEN CITRATE 10 MG TAB PO SCH (07:52)
--- NOTE | 2018-01-19 10:08 | PDIAF ---
- Diagnosis Diagnosis: n/v, afib, interstitial lung disease Code Status: Do Not Resuscitate - Medication Management Discharge Medications: Medications to Continue on Transfer Alendronate Sodium [Fosamax 70 MG (*)] 71 mg PO MO 12/18/17 [Last Taken 01/12/18 ] Apixaban [Eliquis] 2.5 mg PO BID 12/18/17 [Last Taken 01/15/18] Atorvastatin Calcium [Lipitor 20 mg (*)] 20 mg PO HS 12/18/17 [Last Taken ] Cholecalciferol Vit D3 [Vitamin D3 (*)] 1,000 units PO DAILY 12/18/17 [Last Taken 01/15/18] Cyanocobalamin [Vitamin B12 (*)] 1,000 mcg PO DAILY 12/18/17 [Last Taken ] Digoxin [Lanoxin 125 mcg (RX)] 125 mcg PO DAILY10 12/18/17 [Last Taken 01/15/18] Diltiazem Sr [Cardizem Sr] 90 mg PO DAILY 12/18/17 [Last Taken 01/15/18] LORazepam [Ativan (*)] 0.5 mg PO HS 12/18/17 [Last Taken 01/14/18] Levothyroxine [Synthroid 75 mcg (*)] 75 mcg PO DAILY06 12/18/17 [Last Taken 02/27] QUEtiapine FUMARATE [Seroquel 50 mg (*)] 75 mg PO HS 12/18/17 [Last Taken ] Tamoxifen Citrate [Nolvadex 10 MG (*)] 20 mg PO DAILY 12/18/17 [Last Taken 01/15] Pantoprazole Sodium [Protonix 40mg (*)] 40 mg PO BID #60 tab 01/19/18 [Last Taken Unknown] Polyethylene Glycol 3350 [Miralax 17 gm (*)] 17 gm PO DAILY PRN pkt 01/19/18 [ Last Taken Unknown] Discharge Medications: Refer to the Discharge Home Medication list for PRN reason. - Orders Services needed: Home Care, Registered Nurse, Physical Therapy, Occupational Therapy Home Care Face to Face: I certify that this patient was under my care and that I had the required [id number] encounter meeting the encounter requirements on the discharge day. My findings support the fact that the patient is homebound as defined in Home Care Face to Face Continued: [facility] Chapter 7 Medicare Benefits Manual 30.1.1 , The condition of the patient is such that there exists a normal inability to leave home and consequently, leaving home would require a considerable and taxing effort. Isolation Type: Chemotherapy Isolation Diet Recommendation: no restrictions on diet Diet Texture: Regular Texture Diet - Labs/Radiology Other Lab Name, Date and Time: TSH in 4 weeks, Dig level 01/22/2018 - Follow Up Care Current Providers and Referrals: Patient,NotPresent [Unknown] - As per Instructions
--- NOTE | 2018-01-19 10:09 | PDHOMEO2F ---
Home Oxygen Face to Face Home Orders: I certify that a physician or a nurse practitioner or physician's senior assistant manager has had a [id number] encounter with this patient on the date of this order due to the diagnosis listed, which relates to the primary reason the patient requires home oxygen. Alternative treatments have been tried, or considered, and deemed ineffective. It is anticipated that supplemental oxygen will result in improvement with treatment. Home oxygen qualifying diagnosis: ILD SpO2 on room air (%): 83% Frequency of home oxygen needed: continuous Home oxygen liters per minute: 2 Home oxygen delivery device: nasal cannula Concentrator: Yes E-tanks for mobility and back up: No If ordering portable O2, is the patient mobile in the home?: No I certify that, based on these findings, the home oxygen is medically necessary for this patient for the following length of time. Length of time home oxygen needed: 99 years
--- NOTE | 2018-01-19 10:24 | GDS ---
[f rep st] DISCHARGE SUMMARY DIAGNOSES: 1. Recurrent nausea, vomiting, likely secondary to esophagitis. 2. Esophagitis noted on esophagram with some acid reflux. Discussed with medical power of assistant city attorney who wishes to just treat with a PPI rather than moving forward with endoscopy and anesthesia at this time. Will monitor symptoms. 3. Most likely interstitial lung disease. Will not evaluate at this time. Patient is satting, requ ires minimal oxygen at this time. 4. Dyslipidemia. 5. Atrial fibrillation, currently on Eliquis and rate controlled low-dose diltiazem and digoxin. 6. Hypothyroidism, on replacement. 7. Dementia. 8. Generalized weakness. 9. Hematuria on admission, which I suspect was likely from traumatic cath specimen. Will follow sym ptoms, which she has not had. Can check as an outpatient in the future. PROCEDURES DONE: 1. Esophagram. Hiatal hernia with associated distal esophageal dysmotility, reflux and esophagitis. 2. Echocardiogram. EF 56%, with no wall motion abnormalities. Normal RV function, mild valvular he art disease, and right ventricular systolic pressure of 27. 3. Chest x-ray. Showing findings consistent with interstitial lung disease. HOSPITAL COURSE: The patient is an 87-year-old with the above medical history, who came in with recu rrent nausea, vomiting. On admission, she was found to be hypoxic and admitted to the hospital. Her nausea vomiting pretty much resolved when she was admitted to the hospital and she has had no recurr ence. This is very similar to her previous admission 3 weeks prior. She had no further nausea vomit ing during her stay and esophagram was done with the above findings, and she was started on Protonix twice daily. She can continue this for 4-6 weeks and then decrease the dose to daily. She also had atrial fibrillation and her rate was well controlled on the digoxin and she was anticoagulated with E liquis. She can follow up as needed for this. I will give her a referral to [facility]. Her TSH was mildly elevated at 6.55. I recommend she repeat this as an outpatient as she was fairly asympto matic with it. CONDITION ON DISCHARGE: Good. Vital signs are stable. Blood pressure is 150/78, with a heart rate of 80. She was 90% on room air. She does drop down to 83% on room air while sleeping and she will b e set up with home oxygen to use at night and as needed. DISCHARGE MEDICATIONS: Please see discharge medication form. FOLLOW UP: Followup will be with her primary care provider. I will also have her follow up with Nicola vasquez as an outpatient for her atrial fibrillation. TOTAL TIME: Spent with patient on day of discharge in coordination of care is 35 minutes. /[id number]/MODL
[2018-01-19] MEDS: DIGOXIN 125 MCG TAB PO SCH (11:54)
--- NOTE | 2018-01-19 14:26 | PDIAF ---
- Diagnosis Diagnosis: n/v, afib, interstitial lung disease Code Status: Do Not Resuscitate - Medication Management Discharge Medications: Medications to Continue on Transfer Alendronate Sodium [Fosamax 70 MG (*)] 71 mg PO MO 12/18/17 [Last Taken 01/12/18 ] Apixaban [Eliquis] 2.5 mg PO BID 12/18/17 [Last Taken 01/15/18] Atorvastatin Calcium [Lipitor 20 mg (*)] 20 mg PO HS 12/18/17 [Last Taken ] Cholecalciferol Vit D3 [Vitamin D3 (*)] 1,000 units PO DAILY 12/18/17 [Last Taken 01/15/18] Cyanocobalamin [Vitamin B12 (*)] 1,000 mcg PO DAILY 12/18/17 [Last Taken ] Digoxin [Lanoxin 125 mcg (RX)] 125 mcg PO DAILY10 12/18/17 [Last Taken 01/15/18] Diltiazem Sr [Cardizem Sr] 90 mg PO DAILY 12/18/17 [Last Taken 01/15/18] LORazepam [Ativan (*)] 0.5 mg PO HS 12/18/17 [Last Taken 01/14/18] Levothyroxine [Synthroid 75 mcg (*)] 75 mcg PO DAILY06 12/18/17 [Last Taken 02/27] QUEtiapine FUMARATE [Seroquel 50 mg (*)] 75 mg PO HS 12/18/17 [Last Taken ] Tamoxifen Citrate [Nolvadex 10 MG (*)] 20 mg PO DAILY 12/18/17 [Last Taken 01/15] Pantoprazole Sodium [Protonix 40mg (*)] 40 mg PO BID #60 tab 01/19/18 [Last Taken Unknown] Polyethylene Glycol 3350 [Miralax 17 gm (*)] 17 gm PO DAILY PRN pkt 01/19/18 [ Last Taken Unknown] Discharge Medications: Refer to the Discharge Home Medication list for PRN reason. - Orders Services needed: Registered Nurse, Certified Gravel Machine Operator, Physical Therapy, Occupational Therapy, Speech Language Pathologist Isolation Type: Chemotherapy Isolation Diet Recommendation: no restrictions on diet Diet Texture: Regular Texture Diet - Labs/Radiology Other Lab Name, Date and Time: TSH in 4 weeks, Dig level 01/22/2018 - Follow Up Care Current Providers and Referrals: Patient,NotPresent [Unknown] - As per Instructions
--- NOTE | 2018-01-19 15:15 | PDIAF ---
- Diagnosis Diagnosis: n/v, afib, interstitial lung disease Code Status: Do Not Resuscitate - Medication Management Discharge Medications: Medications to Continue on Transfer Alendronate Sodium [Fosamax 70 MG (*)] 71 mg PO MO 12/18/17 [Last Taken 01/12/18 ] Apixaban [Eliquis] 2.5 mg PO BID 12/18/17 [Last Taken 01/15/18] Atorvastatin Calcium [Lipitor 20 mg (*)] 20 mg PO HS 12/18/17 [Last Taken ] Cholecalciferol Vit D3 [Vitamin D3 (*)] 1,000 units PO DAILY 12/18/17 [Last Taken 01/15/18] Cyanocobalamin [Vitamin B12 (*)] 1,000 mcg PO DAILY 12/18/17 [Last Taken ] Digoxin [Lanoxin 125 mcg (RX)] 125 mcg PO DAILY10 12/18/17 [Last Taken 01/15/18] Diltiazem Sr [Cardizem Sr] 90 mg PO DAILY 12/18/17 [Last Taken 01/15/18] LORazepam [Ativan (*)] 0.5 mg PO HS 12/18/17 [Last Taken 01/14/18] Levothyroxine [Synthroid 75 mcg (*)] 75 mcg PO DAILY06 12/18/17 [Last Taken 02/27] QUEtiapine FUMARATE [Seroquel 50 mg (*)] 75 mg PO HS 12/18/17 [Last Taken ] Tamoxifen Citrate [Nolvadex 10 MG (*)] 20 mg PO DAILY 12/18/17 [Last Taken 01/15] Pantoprazole Sodium [Protonix 40mg (*)] 40 mg PO BID #60 tab 01/19/18 [Last Taken Unknown] Polyethylene Glycol 3350 [Miralax 17 gm (*)] 17 gm PO DAILY PRN pkt 01/19/18 [ Last Taken Unknown] Discharge Medications: Refer to the Discharge Home Medication list for PRN reason. - Orders Services needed: Home Care, Registered Nurse, Certified Remote Sensing Engineer, Physical Therapy, Occupational Therapy Home Care Face to Face: I certify that this patient was under my care and that I had the required [id number] encounter meeting the encounter requirements on the discharge day. My findings support the fact that the patient is homebound as defined in Home Care Face to Face Continued: CMS Chapter 7 Medicare Benefits Manual 30.1.1 , The condition of the patient is such that there exists a normal inability to leave home and consequently, leaving home would require a considerable and taxing effort. Isolation Type: Chemotherapy Isolation Diet Recommendation: no restrictions on diet Diet Texture: Regular Texture Diet - Labs/Radiology Other Lab Name, Date and Time: TSH in 4 weeks, Dig level 01/22/2018 - Follow Up Care Current Providers and Referrals: Patient,NotPresent [Unknown] - As per Instructions
--- NOTE | 2018-01-20 09:20 | ASDISCHSUM ---
Discharge Information Plan Status:Home with Home Health Medically Cleared to Leave:01/19/2018 Discharge Date:01/19/2018 05:57 PM CM D/C Disposition: ADT D/C Disposition:Home Health Service Projected Discharge Date:01/19/2018 11:00 AM Transportation at D/C: Discharge Delay Reason: Follow-Up Date:01/19/2018 11:00 AM Discharge Slot: Final Diagnosis: Placement Information Referral Type:*Home Health Care Services Referral ID:[id number] Provider Name:[facility] Address 1:[address] [address] Phone Number: Address 2: Fax Number: City:[place] Selection Factors: State:[place] Referral Type:*Residential/SNF Referral ID:[id number] Provider Name: Address 1: Phone Number: Address 2: Fax Number: City: Selection Factors: State: Patient Contact Information Contact Name:YOLANDA Relationship:Sriram Address:[address] Work Phone: City:[place] Alternate Phone: State/Zip Code:[place] [address] Email: Financial Information Financial Class:Medicare Primary Plan Desc:MEDICARE OUTPATIENT Primary Plan Number:[id number] Secondary Plan Desc:[employer] FEDERAL PLAN Secondary Plan Number:[id number] Assessment Information [facility] Initial CM Assessment Living Arrangements What is your living Answers: With Other Relative(s) arrangement? Who do you live with? Type Of Residence What kind of residence do Answers: House you live in? Discharge Plan Comments Coordination Status Comments Notes: Pts case discussed in tx rounds. Pt is a 87 y/o female admitted for CHF and vomiting. PT is recommending HC w/ 24hr supervision. OT is recommending HC vs SNF. Pt has dementia. Pt is currently living w/ sriram Hall. CM met w/ pt and Isabel for dispo planning. Isabel reports that pt had [facility] in the past and would like another referral sent to them. Pt has a WINDOW MACHINE OPERATOR M-F for 8am-5pm. Isabel reports that pt is never left alone. Isabel is in the process of transitioning pt into a memory care unit in [place]. CM provided Isabel emotional support. CM to follow. Plan: [facility]; PT, OT, RN, Date Signed: 01/16/2018 03:51 PM Electronically Signed By:CAROLINA Smith [facility] CM Progress Note CM Note CM Note Notes: Spoke with MD & RN; Upper GI series ordered. Anticipate dc tomorrow if pt is medically stable. Pt's niece Isabel ochoa. Alerted Elisa ([phone]) at [facility]; updates faxed. CM will continue to follow. Plan-[facility] for RN/PT/OT/SW Date Signed: 01/17/2018 03:42 PM Electronically Signed By:Kristen Hunt RN Case Management Discharge Plan Note Case Management Discharge Discharge Order Complete? Answers: Yes Patient to Obtain Answers: via Family Medications Transportation Arranged Answers: Family/Friends EMTALA Complete Answers: No Case Management Transport Answers: No Form Complete Faxed Final Orders Answers: Yes Agency/Facility Transfer Answers: Yes Report Printed & Faxed to Receiving Agency Family Notified Answers: Yes Discharge Comments Notes: CM spoke w/ EVELYN Dee regarding d/c POC. OT is recommending SNF vs. HC. PT is recommending HC w/ 24hr supervision. CM met w/ pt for dispo planning. Pt is not interested in going to a SNF. SUSAN spoke w/ sriram regarding the recommendations. Niyanique would like pt to go to a SNF but respects pts choice of refusing SNF. Sriram is agreeable to having pt return home w/ - WINDOW MACHINE OPERATOR private duty in addition to [facility]. DC orders sent to [facility]. notified Victoria at [facility] of the d/c. CM available for changes. Plan: [facility]; PT, OT, RN with arranged M-F 8-5 WINDOW MACHINE OPERATOR private duty Date Signed: 01/19/2018 03:15 PM Electronically Signed By:CAROLINA Smith Intervention Information Intervention Type:*IM-Signed Date of Service:01/19/2018 04:03 PM Patient Type:Inpatient Staff Member:CAROLINA Page Michelle Hours: Discipline: Severity: Comment:
== END 2018-01-19 17:57 | disposition home health service (06) | DRG 392 ==
LOC: EDUNIT# → OBSVTOIN 21:45 → F2W 23:11 → F3E 01-17 16:47
PROVIDERS: ADMIT Student in an Organized Health Care Education/Training Program; ATTEND Student in an Organized Health Care Education/Training Program
DX: K21.0 Gastro-esophageal reflux disease with esophagitis (principal); J84.9 Interstitial pulmonary disease, unspecified; T83.89XA Other specified complication of genitourinary prosthetic devices, implants and grafts, initial encounter; R31.9 Hematuria, unspecified; R32 Unspecified urinary incontinence; E78.5 Hyperlipidemia, unspecified; I48.91 Unspecified atrial fibrillation; E03.9 Hypothyroidism, unspecified; F03.90 Unspecified dementia, unspecified severity, without behavioral disturbance, psychotic disturbance, mood disturbance, and anxiety; K46.9 Unspecified abdominal hernia without obstruction or gangrene; K22.4 Dyskinesia of esophagus; Z23 Encounter for immunization; Z79.01 Long term (current) use of anticoagulants; Z85.3 Personal history of malignant neoplasm of breast; Z66 Do not resuscitate
CPT/HCPCS: 96374; 97116-GP; 97161-GP; 97166-GO; 97535-GO; G0009; G0378; G8978-GP-CK; G8979-GP-CJ; G8987-GO-CK; G8988-GO-CI; J2405